=== PATIENT | female | born 1990 | race Two or more races ===

== ENCOUNTER 2018-11-04 08:17 | Emergency (ER) | payer OTHER ==
[~2018-11-04] VITALS: Ht 160 cm; Wt 62.1 kg
[2018-11-04 08:22] VITALS: Ht 160 cm; Wt 62.1 kg
[2018-11-04 09:27] VITALS: BP 118/76
== END 2018-11-04 09:27 | disposition home or self-care (01) ==
LOC: ED 08:17
DX: M62.830 Muscle spasm of back (principal); M25.511 Pain in right shoulder; X50.1XXA Overexertion from prolonged static or awkward postures, initial encounter; Y93.89 Activity, other specified; Y92.89 Other specified places as the place of occurrence of the external cause; Y99.8 Other external cause status